=== PATIENT | female | born 1960 | race Caucasian/White ===

== ENCOUNTER 2016-09-14 13:34 | Emergency (ER) | payer MEDICARE, OTHER ==
[~2016-09-14 13:34] MED LIST: *UNABLE2; ADVAIR250 INH; ALBUTEROL INH; ASACOL PO; ATROVENTUD INH; BENTYL10 PO; CEFAZ1 IM; CEFAZ1 IV; CELEXA PO; CELEXA40 MG PO; CHANTIX1 PO; COMBIVENT RESPIM4 GM INH; DITRO5 PO; DUONEB INH; EFFEXXR75 PO; IMDUR30 PO; IMDUR60 PO; KAPIDEX60 MG PO; L20 PO; L40 PO; LIALDA1.2 GM PO; LIBRAX PO; LIPITOR20 PO; LIPITOR40 PO; LIPITOR80 MG PO; LOP25 PO; LOP50 PO; METAMUCIL CAN7 OZ PO; MSCONT15 PO; NEUR600 PO; NITROSTAT0.4 MG SL; NORCO1 TA1 PO; NORCO1 TAB PO; NORV10 PO; PERCOCET1 TA2 PO; PLAVIX PO; PRILO PO; PROTONIX PO; PROVENTSOL INH; RISP1 PO; SINGULAIR1 PO; SPIRIVA INH; TOVIAZ8 MG PO; TUDORZA PRESS400 MCG INH; V5 PO; X5 PO; XANAX1 MG PO; ZESTORETIC1 TAB PO; [UNRECOGNIZED DRUG - OTHER] INH
[2016-09-14 15:41] LABS: BASOPHILS 0.3 %; BASOPHILS ABSOLUTE 0.02 10/3/uL (0.0-0.16); EOSINOPHILS 1.4 %; EOSINOPHILS ABSOLUTE 0.11 10/3/uL (0.0-0.53); ER CBC TAT 0 Hrs 05 Mins; HEMATOCRIT 36.9 % (36.0-48.0); HEMOGLOBIN 11.9 g/dL (12.0-16.0); IMMATURE GRANULOCYTES 0.3 %; IMMATURE GRANULOCYTES ABSOLUTE 0.02 10/3/uL (0.0-0.11); LYMPHOCYTES 23.7 %; LYMPHOCYTES ABSOLUTE 1.84 10/3/uL (0.67-4.30); MEAN CORPUS HGB CONC 32.2 g/dL (32.0-36.0); MEAN CORPUSCULAR HEMOGLOB 29.4 pg (26.0-34.0); MONOCYTES 4.5 %; MONOCYTES ABSOLUTE 0.35 10/3/uL (0.21-1.20); NEUTROPHILS 69.8 %; NEUTROPHILS ABSOLUTE 5.41 10/3/uL (2.02-8.40); PLATELET COUNT 312 10/3/uL (150-400); RBC DISTRIBUTION WIDTH 14.4 % (12.0-16.0); RED CELL COUNT 4.05 10/6/uL (4.0-5.6); WHITE BLOOD CELLS 7.8 10/3/uL (4.5-10.5)
[2016-09-14 15:44] LABS: MANUAL DIFF NO %; MEAN CORPUSCULAR VOLUME 91.1 fL (80-100)
[2016-09-14 15:51] LABS: PARTIAL THROMBO TIME 25.8 SEC (22.5-37.2); PROTIME (NOT ORD) 13.2 SEC (12.0-14.5)
[2016-09-14 15:56] LABS: BUN (BLOOD UREA NITROGEN) 18 MG/DL (6-23); CALCIUM, SERUM 9.3 MG/DL (8.5-10.4); CHEST PAIN PROFILE TAT 0 Hrs 20 Mins; CHLORIDE, SERUM 102 MMOL/L (96-112); CO2 (CARBON DIOXIDE) 34 MMOL/L (24-34); CREATININE 0.97 MG/DL (0.55-1.02); GFR AFRICAN AMERICAN 77 ML/MIN (>=60); GFR NON AFRICAN AMERICAN 66 ML/MIN (>=60); GLUCOSE, SERUM 121 MG/DL (60-99); POTASSIUM, SERUM 4.1 MMOL/L (3.5-5.3); SODIUM, SERUM 140 MMOL/L (135-148); TROPONIN I <0.02 NG/ML (<0.05)
== END 2016-09-14 19:12 | disposition home or self-care (01) ==
LOC: ER 13:34
PROVIDERS: Emergency Medicine
DX: R07.89 Other chest pain (principal); F17.200 Nicotine dependence, unspecified, uncomplicated; F41.9 Anxiety disorder, unspecified; D64.9 Anemia, unspecified; F32.9 Major depressive disorder, single episode, unspecified; Z86.73 Personal history of transient ischemic attack (TIA), and cerebral infarction without residual deficits; I25.10 Atherosclerotic heart disease of native coronary artery without angina pectoris; J44.9 Chronic obstructive pulmonary disease, unspecified; I25.2 Old myocardial infarction; I10 Essential (primary) hypertension; K21.9 Gastro-esophageal reflux disease without esophagitis; Z88.0 Allergy status to penicillin; Z88.6 Allergy status to analgesic agent; Z79.899 Other long term (current) drug therapy
CPT/HCPCS: 71020; 80048; 83735; 84484; 85025; 85610; 85730; 93005; 99285